=== PATIENT | female | born 1950 | race Caucasian/White ===

== ENCOUNTER 2018-10-13 12:45 | Emergency (ER) | payer BC ==
--- NOTE | 2018-10-13 13:05 | UC ---
Throat Pain/Nasal Matthew HPI - HPI Summary HPI Summary: 68-year-old woman comes in with a chief complaint of runny nose sinus pressure not feeling well. All this started 2 weeks ago with upper respiratory tract infection symptoms. The rhinorrhea has grossly gone to a green color and it's very thick and she's having sinus pressure. Does have some postnasal drip denies any chest congestion. She did try decongestant when she had a lot of rhinorrhea which did slow down the rhinorrhea. - History of Current Complaint Stated Complaint: SINUS Time Seen by Provider: 10/13/18 12:57 - Allergies/Home Medications Allergies/Adverse Reactions: Allergies Allergy/AdvReac Type Severity Reaction Status Date / Time amoxicillin [From Augmentin] Allergy Nausea Verified 10/13/18 13:05 cefaclor [From Ceclor] Allergy Rash Verified 10/13/18 13:05 clavulanic acid Allergy Nausea Verified 10/13/18 13:05 [From Augmentin] erythromycin base Allergy Nausea Verified 10/13/18 13:05 PMH/Surg Hx/FS Hx/Imm Hx Previously Healthy: Yes - Family History Known Family History: Positive: Non-Contributory Review of Systems All Other Systems Reviewed And Are Negative: Yes Constitutional: Positive: Negative Skin: Positive: Negative Eyes: Positive: Negative ENT: Positive: Sore Throat, Nasal Discharge, Sinus Congestion, Sinus Pain/ Tenderness Respiratory: Positive: Negative Cardiovascular: Positive: Negative Gastrointestinal: Positive: Negative Motor: Positive: Negative Neurovascular: Positive: Negative Musculoskeletal: Positive: Negative Neurological: Positive: Negative Psychological: Positive: Negative Is Patient Immunocompromised?: No Physical Exam Triage Information Reviewed: Yes Appearance: No Pain Distress, Well-Nourished, Ill-Appearing - mild Vital Signs Reviewed: Yes Eye Exam: Normal Eyes: Positive: Conjunctiva Clear ENT: Positive: Pharyngeal erythema, Nasal congestion, Nasal drainage, TMs normal Neck exam: Normal Neck: Positive: Supple Respiratory: Positive: Lungs clear, Normal breath sounds, No respiratory distress Cardiovascular: Positive: RRR Musculoskeletal Exam: Normal Musculoskeletal: Positive: Strength Intact, ROM Intact Neurological Exam: Normal Neurological: Positive: Alert, Muscle Tone Normal Psychological Exam: Normal Psychological: Positive: Age Appropriate Behavior Skin Exam: Normal Throat Pain/Nasal Course/Dx - Course Course Of Treatment: Patient has several antibiotic allergies. She reports that she can take Jose David azithromycin safely. - Differential Dx/Diagnosis Provider Diagnosis: Sinusitis Discharge - Sign-Out/Discharge Documenting (check all that apply): Patient Departure All imaging exams completed and their final reports reviewed: No Studies - Discharge Plan Condition: Stable Disposition: HOME Prescriptions: Azithromyxin FISH (NF) [Z-Fish (Zithromax) 250 mg tabs #6] 2 tab PO .TODAY, THEN 1 DAILY #6 tab Patient Education Materials: Sinusitis (ED) Referrals: Michelle Rowley MD [Primary Care Provider] - Additional Instructions: FOLLOW UP WITH YOUR DOCTOR IF NOT COMPLETELY IMPROVED. GET RECHECKED FOR ANY WORSENING OF YOUR CONDITION OR QUESTIONS OR CONCERNS. - Billing Disposition and Condition Condition: STABLE Disposition: Home
[2018-10-13 13:10] VITALS: BP 130/71
== END 2018-10-13 13:18 | disposition home or self-care (01) ==
LOC: UCCORT 12:45
DX: J32.9 Chronic sinusitis, unspecified (principal); Z88.0 Allergy status to penicillin; Z88.1 Allergy status to other antibiotic agents
CPT/HCPCS: 99202; G0463

== ENCOUNTER 2020-05-04 06:17 | Inpatient (IN) ==
[~2020-05-04 06:17] MED LIST: Buffered Lidocaine 1% SYRIN 1 ml INTRADERM ONE; Dexamethasone IV 4 MG/ML VIAL 1 ml VIAL IV SLOW PU ONE; Lactated Ringers 1000 ml BAG 1,000 ML IV SCH
[2020-05-04] MEDS ORDERED: ceFAZolin 2 GM PREMIX 2 GM/50 ML BAG ONE (06:48)
[2020-05-04] MEDS ORDERED: Dexamethasone IV 4 MG/ML VIAL 1 ml VIAL ONE (06:48)
[2020-05-04] MEDS ORDERED: fentaNYL 100 mcg/2 ml 50 MCG/ML VIAL ONE (07:13)
[2020-05-04] MEDS ORDERED: Midazolam 2 mg/2 ml VIAL 1 mg/ml 2 ml VIAL (2 mg) ONE ×2 (07:13→07:55)
[2020-05-04] MEDS ORDERED: Lidocaine 2% PF 5 ML VIAL ONE (07:26)
[2020-05-04] MEDS ORDERED: ROPIVACAINE 5 MG/ML 30 ML BTL (0.5%) ONE ×2 (07:26→07:43)
[2020-05-04] MEDS ORDERED: Bupivacaine 0.5% SDV PF 30ML VIAL ONE (07:32)
[2020-05-04] MEDS ORDERED: Propofol 10 MG/ML 20 ML BTL ONE ×2 (09:31)
[2020-05-04] MEDS ORDERED: Ondansetron 4 mg VIAL 2 MG/ML 2 ml VIAL ONE (09:32)
[2020-05-04] MEDS ORDERED: Lactulose 30 ml UDC PO PRN (10:35)
[2020-05-04] MEDS ORDERED: diPHENhydraMINE IV 50 MG/ML 1 ml VIAL (BENADRYL) IV PRN (10:35)
[2020-05-04] MEDS ORDERED: Ondansetron ODT 4 mg TAB 4 MG TAB PO PRN (10:35)
[2020-05-04] MEDS ORDERED: Magnesium Hydroxide LIQ 30 ML UDC PO PRN (10:35)
[2020-05-04] MEDS ORDERED: Ondansetron 4 mg VIAL 2 MG/ML 2 ml VIAL IV PRN (10:35)
[2020-05-04] MEDS ORDERED: diPHENhydraMINE 25 mg TAB PO PRN (10:35)
[2020-05-04] MEDS ORDERED: HYDROmorphone 1 MG/1 ML SYRINGE IV PRN (11:24)
[2020-05-04] MEDS ORDERED: fentaNYL 100 mcg/2 ml 50 MCG/ML VIAL IV PRN (11:24)
[2020-05-04] MEDS ORDERED: Naloxone 0.4 mg VIAL 0.4 mg/ml 1 ml VIAL IV PRN (11:24)
[2020-05-04] MEDS: Lactated Ringers 1000 ml BAG 1,000 ML IV SCH (12:30)
[2020-05-04] MEDS: oxyCODONE/Acetamin 5/325 mg TAB PO PRN ×2 (13:08→18:21)
[2020-05-04] MEDS: Clindamycin 600 MG/D5W BAG 600 MG/50 ML BAG IV SCH (16:29)
[2020-05-04] MEDS: Magnesium Hydroxide LIQ 30 ML UDC PO SCH (21:49)
[2020-05-04] MEDS: CMCS: FluvoxaMINE 50 mg TAB (NF) PO SCH (21:49)
[2020-05-05] MEDS: Lactated Ringers 1000 ml BAG 1,000 ML IV SCH (00:33)
[2020-05-05] MEDS: Clindamycin 600 MG/D5W BAG 600 MG/50 ML BAG IV SCH ×2 (00:33→08:07)
[2020-05-05] MEDS: oxyCODONE/Acetamin 5/325 mg TAB PO PRN ×2 (04:31→16:13)
[2020-05-05 06:47] LABS: Hematocrit 32 % (35-47); Platelet Count 343 10^3/uL (150-450)
[2020-05-05 07:08] LABS: BUN/Creatinine Ratio 22.3 (8-20); Calcium 8.6 mg/dL (8.6-10.3); EGFR African American 71.7 (>60); EGFR Non-African American 59.2 (>60); Potassium 3.7 mmol/L (3.5-5.0)
[2020-05-05] MEDS: Magnesium Hydroxide LIQ 30 ML UDC PO SCH (08:11)
[2020-05-05] MEDS: CMCS: FluvoxaMINE 50 mg TAB (NF) PO SCH (08:14)
[2020-05-05] MEDS ORDERED: Cholecalciferol (VIT D3) 1,000 unit TAB PO SCH (09:00)
[2020-05-05] MEDS ORDERED: Vitamin THERAPEUTIC TAB PO SCH (09:00)
[2020-05-05] MEDS ORDERED: Morphine ER 15 mg TAB ** extended release PO SCH (12:00)
[2020-05-05 16:56] VITALS: BP 135/72
== END 2020-05-05 17:50 | disposition home or self-care (01) | DRG 470 ==
LOC: AA 06:17 → SSU 12:25
PROVIDERS: ADMIT Orthopaedic Surgery Adult Reconstructive Orthopaedic Surgery; ATTEND Orthopaedic Surgery Adult Reconstructive Orthopaedic Surgery

== ENCOUNTER 2021-04-26 07:30 | Observation (INO) ==
[2021-06-07] MEDS ORDERED: Buffered Lidocaine 1% SYRIN 1 ml INTRADERM ONE (06:00)
[2021-06-07] MEDS ORDERED: Famotidine IV 10 MG/ML 2 ml VIAL (20 mg) IV ONE (06:00)
[2021-06-07] MEDS ORDERED: Dexamethasone IV 4 MG/ML VIAL 1 ml VIAL ONE ×2 (13:31→14:07)
[2021-06-07] MEDS ORDERED: Ondansetron 4 mg VIAL 2 MG/ML 2 ml VIAL ONE (13:31)
[2021-06-07] MEDS ORDERED: Lidocaine 2% PF 5 ML VIAL ONE (13:32)
[2021-06-07] MEDS ORDERED: Phenylephrine IV 10 MG/ML 1 ml VIAL ONE (13:32)
[2021-06-07] MEDS ORDERED: Famotidine IV 10 MG/ML 2 ml VIAL (20 mg) ONE (13:34)
[2021-06-07] MEDS ORDERED: ceFAZolin 2 GM in NS PREMIX 2 GM/100 ML BAG IVPB ONE (13:50)
[2021-06-07] MEDS ORDERED: Midazolam 2 mg/2 ml VIAL 1 mg/ml 2 ml VIAL (2 mg) ONE ×3 (14:07→17:56)
[2021-06-07] MEDS ORDERED: fentaNYL 100 mcg/2 ml 50 MCG/ML VIAL ONE ×4 (14:07→18:47)
[2021-06-07] MEDS: Lactated Ringers 1000 ml BAG 1,000 ML IV SCH ×2 (14:08→20:03)
[2021-06-07] MEDS ORDERED: ROPIVACAINE 5 MG/ML 30 ML BTL (0.5%) ONE ×2 (14:08→16:52)
[2021-06-07] MEDS ORDERED: Vancomycin 1,250 MG in NS 0.9% 250 ml 250 ML IVPB ONE (15:00)
[2021-06-07] MEDS ORDERED: diPHENhydraMINE 25 mg TAB PO PRN (15:54)
[2021-06-07] MEDS ORDERED: Ondansetron 4 mg VIAL 2 MG/ML 2 ml VIAL IV PRN ×2 (15:54→17:02)
[2021-06-07] MEDS ORDERED: Lactulose 30 ml UDC PO PRN (15:54)
[2021-06-07] MEDS ORDERED: diPHENhydraMINE IV 50 MG/ML 1 ml VIAL (BENADRYL) IV PRN (15:54)
[2021-06-07] MEDS ORDERED: Ondansetron ODT 4 mg TAB 4 MG TAB PO PRN (15:54)
[2021-06-07] MEDS ORDERED: Magnesium Hydroxide LIQ 30 ML UDC PO PRN (15:54)
[2021-06-07] MEDS ORDERED: oxyCODONE/Acetamin 5/325 mg TAB PO PRN (15:54)
[2021-06-07] MEDS ORDERED: Morphine 2 MG/ML SYRINGE IV PRN (15:54)
[2021-06-07] MEDS ORDERED: Lactated Ringers 1000 ml BAG 1,000 ML IV SCH (16:00)
[2021-06-07] MEDS ORDERED: Phenylephrine 40 mcg/mL 10mL (400mcg) SYRINGE ONE (16:21)
[2021-06-07] MEDS ORDERED: Naloxone 0.4 mg VIAL 0.4 mg/ml 1 ml VIAL IV PRN (17:02)
[2021-06-07] MEDS: fentaNYL 100 mcg/2 ml 50 MCG/ML VIAL IV PRN ×4 (18:28→19:01)
[2021-06-07] MEDS ORDERED: Fluticasone NASAL SPRAY 50MCG 16 gm SPRAY BTL BOTH NARES PRN (20:39)
[2021-06-07] MEDS ORDERED: FLUVOXAMINE 100 MG PO SCH (21:00)
[2021-06-07] MEDS: Magnesium Hydroxide LIQ 30 ML UDC PO SCH (21:26)
[2021-06-07] MEDS: oxyCODONE/Acetamin 5/325 mg TAB PO PRN (21:28)
[2021-06-07] MEDS: CMCS: FluvoxaMINE 50 mg TAB (NF) PO SCH (23:13)
[2021-06-08] MEDS: Vancomycin 1,000 MG in NS 0.9% 250 ml 250 ML IVPB SCH ×2 (00:24→11:38)
[2021-06-08] MEDS: oxyCODONE/Acetamin 5/325 mg TAB PO PRN (03:38)
[2021-06-08 06:35] LABS: Hematocrit 31 % (35-47); Hemoglobin 10.5 g/dL (12.0-16.0); Mean Platelet Volume 8.1 fL (7.4-10.4); Platelet Count 291 10^3/uL (150-450)
[2021-06-08 07:02] LABS: EGFR African American 76.1 (>60); EGFR Non-African American 62.9 (>60); Potassium 4.1 mmol/L (3.5-5.0)
[2021-06-08] MEDS: Magnesium Hydroxide LIQ 30 ML UDC PO SCH ×2 (08:21→09:57)
[2021-06-08] MEDS: CMCS: FluvoxaMINE 50 mg TAB (NF) PO SCH (08:29)
[2021-06-08] MEDS ORDERED: Flu vaccine *QUAD* 2021-22* 0.5 ML SYRINGE IM ONE (09:00)
[2021-06-08] MEDS ORDERED: Vitamin THERAPEUTIC TAB PO SCH (09:00)
[2021-06-08 15:26] VITALS: BP 102/54
== END 2021-06-08 19:26 | disposition home or self-care (01) ==
LOC: INTOOBSV 06-07 12:45 → AA 06-07 12:45 → SSU 06-07 19:39
PROVIDERS: ADMIT Orthopaedic Surgery Adult Reconstructive Orthopaedic Surgery; ATTEND Orthopaedic Surgery Adult Reconstructive Orthopaedic Surgery